=== PATIENT | female | born 1985 | race Caucasian/White ===

== ENCOUNTER 2016-07-17 22:43 | Emergency (ER) | payer OTHER ==
[~2016-07-17] VITALS: Ht 167.6 cm; Wt 57.7 kg
[2016-07-17 22:49] VITALS: BP 116/71; PULSE 66; RESP 16; O2SAT 98
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
[2016-07-17] MEDS ORDERED: HYDROcodone-APAP 5-325 mg Tablet PO ONE (23:55)
[2016-07-18] MEDS ORDERED: _HYDROcodone/APAP 5-325 mg Tablet PO PRN
[2016-07-18] MEDS ORDERED: TdaP Vaccine 0.5 mL Inj IM ONE
[2016-07-18] MEDS ORDERED: _Ondansetron ODT 4 mg Tablet PO PRN
[2016-07-18 02:13] VITALS: BP 114/79; PULSE 59; RESP 12; O2SAT 97
[2016-07-18 02:53] VITALS: BP 114/79; PULSE 59; RESP 12; O2SAT 97
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
== END 2016-07-18 02:54 | disposition home or self-care (01) ==
LOC: SED 22:43
DX: S12.491A Other nondisplaced fracture of fifth cervical vertebra, initial encounter for closed fracture (principal); S10.91XA Abrasion of unspecified part of neck, initial encounter; V18.4XXA Pedal cycle driver injured in noncollision transport accident in traffic accident, initial encounter; Y93.55 Activity, bike riding; Y92.89 Other specified places as the place of occurrence of the external cause; Y99.8 Other external cause status; Z23 Encounter for immunization